=== PATIENT | male | born 1975 | race Two or more races ===

== ENCOUNTER 2018-04-13 12:02 | Inpatient (IN) | payer BC ==
[2018-04-13] MEDS ORDERED: SODIUM CHLORIDE 0.9% 500 ML 500 ML IV STA (12:20)
[2018-04-13 13:46] LABS: Basophils % (A) 0 %; Eosinophils # (A) 0.3 k/uL (0-0.7); Eosinophils % (A) 2 %; HCT 43.6 % (39.0-53.0); HGB 15.1 gm/dL (13.0-17.5); Lymphocytes # (A) 1.7 k/uL (1.0-4.8); Lymphocytes % (A) 13 %; MCH 31.3 pg (25.0-35.0); MCHC 34.7 g/dL (31.0-37.0); MCV 90.3 fL (80.0-100.0); Mean Platelet Volume 6.2; Monocytes # (A) 0.9 k/uL (0-1.0); Monocytes % (A) 7 %; Neutrophils % (A) 77 %; Platelet Count 343 k/uL (150-450); RBC 4.83 m/uL (4.30-5.90); RDW 13.4 % (11.5-15.5); WBC 12.9 k/uL (3.8-10.6)
[2018-04-13 13:47] LABS: Appearance,Urine Clear (Clear); Bacteria,Urine Rare /hpf; Bilirubin,Urine Negative (Negative); Blood,Urine Small (Negative); Color,Urine Yellow; Glucose,Urine (UA) Negative (Negative); Ketones,Urine Trace (Negative); Leukocyte Esterase,Urine Negative (Negative); Mucus,Urine Moderate /hpf; Nitrite,Urine Negative (Negative); PH, Urine 5.5 (5.0-8.0); Protein,Urine Trace (Negative); RBC,Urine 1 /hpf (0-5); Squamous Epithelial Cell,Urine <1 /hpf (0-4); Urobilinogen,Urine <2.0 mg/dL (<2.0); WBC,Urine <1 /hpf (0-5)
[2018-04-13 13:52] LABS: ALT 25 U/L (21-72); AST 22 U/L (17-59); Albumin 4.5 g/dL (3.5-5.0); Alkaline Phosphatase 89 U/L (38-126); Amylase 63 U/L (30-110); Anion Gap 9 mmol/L; Blood Urea Nitrogen 11 mg/dL (9-20); Calcium 9.7 mg/dL (8.4-10.2); Carbon Dioxide 27 mmol/L (22-30); Chloride 104 mmol/L (98-107); Glucose 88 mg/dL (74-99); INR 0.9 (<1.2); Lipase 53 U/L (23-300); Partial Thromboplastin Time 26.6 sec (22.0-30.0); Potassium 4.4 mmol/L (3.5-5.1); Prothrombin Time 9.8 sec (9.0-12.0); Sodium 140 mmol/L (137-145); Total Protein 7.2 g/dL (6.3-8.2)
[2018-04-13] MEDS ORDERED: PIPERACILLIN-TAZOBACTAM 3.375 GM in SODIUM CHLORIDE 0.9% 100 ML IVPB STA (14:55)
--- NOTE | 2018-04-13 15:06 | CT ---
EXAMINATION TYPE: CT abdomen pelvis w con DATE OF EXAM: 04/13/2018 COMPARISON: None HISTORY: Right sided abdominal pain CT DLP: 464.3 mGycm Automated exposure control for dose reduction was used. TECHNIQUE: Helical acquisition of images was performed from the lung bases through the pelvis. CONTRAST: Performed without Oral Contrast and with IV Contrast, patient injected with 100 mL of Isovue 300. FINDINGS: Lung bases are clear. There is no pleural effusion. Heart size is normal. Liver spleen pancreas gallbladder appear normal. Bile ducts are not dilated. There is no adrenal mass . The kidneys show satisfactory contrast opacification. There is no hydronephrosis. There is no retro peritoneal adenopathy. There is mild free fluid in the pelvis. Bladder distends smoothly. There is no inguinal hernia. There is extensive inflammatory changes in the right lower quadrant. There is thickened appendix that measures up to 8 mm. There is air in the distal appendix. There is some fluid around the cecum. There is no evidence of free air. There is no mesenteric edema. The lumbar vertebra have normal spacing and alignment. Bony pelvis is intact. IMPRESSION: INFLAMMATORY CHANGES IN THE RIGHT LOWER QUADRANT AROUND THE CECUM AND PROXIMAL APPENDIX. THERE IS MELISSA E FLUID IN THE PELVIS. THIS MOST LIKELY RELATES TO APPENDICITIS AND PROBABLY RUPTURE ACCOUNTING FOR T HE FREE FLUID IN THE PELVIS. FOCAL COLITIS IS POSSIBLE AND FOLLOW UP TO BE LESS LIKELY.
[2018-04-13] MEDS ORDERED: NALOXONE 0.4 MG/ML 1 ML VIAL IV PRN ×2 (15:21→17:46)
--- NOTE | 2018-04-13 15:29 | ED ---
General Adult HPI - General Chief complaint: Abdominal Pain Stated complaint: Abd pain Time Seen by Provider: 04/13/18 12:09 Source: patient, RN notes reviewed, old records reviewed Mode of arrival: ambulatory Limitations: no limitations - History of Present Illness Initial comments: 42-year-old presenting with right lower quadrant abdominal pain. Pain present for the past 24-48 hours. Patient has tenderness on exam, concern for appendicitis. CT is obtained which shows concern for acute appendicitis with adjacent inflammation and fat stranding. Patient case is discussed with on- call surgery Dr. Olson will admit. Diagnosis: Acute appendicitis. - Related Data Home Medications Medication Instructions Recorded Confirmed Acetaminophen Tab [Tylenol Tab] 650 mg PO Q4H PRN 04/13/18 04/13/18 Allergies Allergy/AdvReac Type Severity Reaction Status Date / Time No Known Allergies Allergy Verified 04/13/18 12:26 Review of Systems ROS Statement: Those systems with pertinent positive or pertinent negative responses have been documented in the HPI. ROS Other: All systems not noted in ROS Statement are negative. Past Medical History Past Medical History: No Reported History History of Any Multi-Drug Resistant Organisms: None Reported Additional Past Surgical History / Comment(s): eye surgery Past Psychological History: No Psychological Hx Reported Smoking Status: Current every day smoker Past Alcohol Use History: Occasional Past Drug Use History: None Reported General Exam Limitations: no limitations Course Vital Signs 04/13/18 04/13/18 12:04 15:08 Temperature 97.6 F 98.7 F Pulse Rate 95 83 Respiratory 18 14 Rate Blood Pressure 151/82 133/88 O2 Sat by Pulse 100 98 Oximetry Medical Decision Making - Lab Data Result diagrams: 04/13/18 12:30 04/13/18 12:30 Lab Results 04/13/18 04/13/18 04/13/18 Range/Units 12:30 12:30 12:30 WBC 12.9 H (3.8-10.6) k/uL RBC 4.83 (4.30-5.90) m/uL Hgb 15.1 (13.0-17.5) gm/dL Hct 43.6 (39.0-53.0) % MCV 90.3 (80.0-100.0) fL MCH 31.3 (25.0-35.0) pg MCHC 34.7 (31.0-37.0) g/dL RDW 13.4 (11.5-15.5) % Plt Count 343 (150-450) k/uL Neutrophils % 77 % Lymphocytes % 13 % Monocytes % 7 % Eosinophils % 2 % Basophils % 0 % Neutrophils # 10.0 H (1.3-7.7) k/uL Lymphocytes # 1.7 (1.0-4.8) k/uL Monocytes # 0.9 (0-1.0) k/uL Eosinophils # 0.3 (0-0.7) k/uL Basophils # 0.0 (0-0.2) k/uL PT (9.0-12.0) sec INR (<1.2) APTT (22.0-30.0) sec Sodium 140 (137-145) mmol/L Potassium 4.4 (3.5-5.1) mmol/L Chloride 104 (98-107) mmol/L Carbon Dioxide 27 (22-30) mmol/L Anion Gap 9 mmol/L BUN 11 (9-20) mg/dL Creatinine 0.87 (0.66-1.25) mg/dL Est GFR (CKD-EPI)AfAm >90 (>60 ml/min/1.73 sqM) Est GFR (CKD-EPI)NonAf >90 (>60 ml/min/1.73 sqM) Glucose 88 (74-99) mg/dL Plasma Lactic Acid Randall 0.9 (0.7-2.0) mmol/L Calcium 9.7 (8.4-10.2) mg/dL Total Bilirubin 1.0 (0.2-1.3) mg/dL AST 22 (17-59) U/L ALT 25 (21-72) U/L Alkaline Phosphatase 89 (38-126) U/L Total Protein 7.2 (6.3-8.2) g/dL Albumin 4.5 (3.5-5.0) g/dL Amylase 63 (30-110) U/L Lipase 53 (23-300) U/L Urine Color Urine Appearance (Clear) Urine pH (5.0-8.0) Ur Specific [place] (1.001-1.035) Urine Protein (Negative) Urine Glucose (UA) (Negative) Urine Ketones (Negative) Urine Blood (Negative) Urine Nitrite (Negative) Urine Bilirubin (Negative) Urine Urobilinogen (<2.0) mg/dL Ur Leukocyte Esterase (Negative) Urine RBC (0-5) /hpf Urine WBC (0-5) /hpf Ur Squamous Epith Cells (0-4) /hpf Urine Bacteria (None) /hpf Urine Mucus (None) /hpf 04/13/18 04/13/18 Range/Units 12:30 12:30 WBC (3.8-10.6) k/uL RBC (4.30-5.90) m/uL Hgb (13.0-17.5) gm/dL Hct (39.0-53.0) % MCV (80.0-100.0) fL MCH (25.0-35.0) pg MCHC (31.0-37.0) g/dL RDW (11.5-15.5) % Plt Count (150-450) k/uL Neutrophils % % Lymphocytes % % Monocytes % % Eosinophils % % Basophils % % Neutrophils # (1.3-7.7) k/uL Lymphocytes # (1.0-4.8) k/uL Monocytes # (0-1.0) k/uL Eosinophils # (0-0.7) k/uL Basophils # (0-0.2) k/uL PT 9.8 (9.0-12.0) sec INR 0.9 (<1.2) APTT 26.6 (22.0-30.0) sec Sodium (137-145) mmol/L Potassium (3.5-5.1) mmol/L Chloride (98-107) mmol/L Carbon Dioxide (22-30) mmol/L Anion Gap mmol/L BUN (9-20) mg/dL Creatinine (0.66-1.25) mg/dL Est GFR (CKD-EPI)AfAm (>60 ml/min/1.73 sqM) Est GFR (CKD-EPI)NonAf (>60 ml/min/1.73 sqM) Glucose (74-99) mg/dL Plasma Lactic Acid Randall (0.7-2.0) mmol/L Calcium (8.4-10.2) mg/dL Total Bilirubin (0.2-1.3) mg/dL AST (17-59) U/L ALT (21-72) U/L Alkaline Phosphatase (38-126) U/L Total Protein (6.3-8.2) g/dL Albumin (3.5-5.0) g/dL Amylase (30-110) U/L Lipase (23-300) U/L Urine Color Yellow Urine Appearance Clear (Clear) Urine pH 5.5 (5.0-8.0) Ur Specific [place] 1.020 (1.001-1.035) Urine Protein Trace H (Negative) Urine Glucose (UA) Negative (Negative) Urine Ketones Trace H (Negative) Urine Blood Small H (Negative) Urine Nitrite Negative (Negative) Urine Bilirubin Negative (Negative) Urine Urobilinogen <2.0 (<2.0) mg/dL Ur Leukocyte Esterase Negative (Negative) Urine RBC 1 (0-5) /hpf Urine WBC <1 (0-5) /hpf Ur Squamous Epith Cells <1 (0-4) /hpf Urine Bacteria Rare H (None) /hpf Urine Mucus Moderate H (None) /hpf Disposition Clinical Impression: Acute appendicitis Disposition: ADMITTED IP TO THIS HOSP Condition: Stable Is patient prescribed a controlled substance at d/c from ED?: No Referrals: Jordon Milligan MD [Primary Care Provider] - 1-2 days Time of Disposition: 15:27
[2018-04-13] MEDS ORDERED: MORPHINE SULFATE 4 MG/ML SYRINGE IVP STA (15:31)
[2018-04-13] MEDS: SODIUM CHLORIDE 0.9% 1,000 ML IV SCH (15:39)
[2018-04-13] MEDS ORDERED: LIDOCAINE 1% INJ 10MG/ML (20 ML MDV) ONE (16:08)
[2018-04-13] MEDS ORDERED: fentaNYL (PF) 50 MCG/ML 2 ML AMP ONE (16:08)
[2018-04-13] MEDS ORDERED: HEPARIN SODIUM,PORCINE 5,000 UNIT/ML 1 ML VIAL ONE (16:08)
[2018-04-13] MEDS ORDERED: NEOSTIGMINE 1 MG/ML 10 ML VIAL ONE (16:08)
[2018-04-13] MEDS ORDERED: GLYCOPYRROLATE 0.2 MG/ML 2 ML VIAL ONE (16:08)
[2018-04-13] MEDS ORDERED: PROPOFOL 10 MG/ML 20 ML VIAL IV ONE (16:08)
[2018-04-13] MEDS ORDERED: ROCURONIUM BROMIDE 10 MG/ML 10 ML VIAL IV ONE (16:08)
[2018-04-13] MEDS ORDERED: MIDAZOLAM 2 MG/2 ML VIAL ONE (16:08)
[2018-04-13] MEDS ORDERED: SUCCINYLCHOLINE CHLORIDE 100 MG/5 ML SYR IV ONE (16:08)
--- NOTE | 2018-04-13 16:09 | P.GSHP ---
History of Present Illness H&P Date: 04/13/18 This is a 42 year old male who presents with abdominal pain in his RLQ that began yesterday. he states he's had no fevers. He's never had pain like this before.The pain is progressively been getting worse over the last 24 hours and he came to the emergency room. He's never had surgery before. His only medical problem is a nystagmus. He had a surgery on his eyes regarding this. Computed tomography scan revealed acute appendicitis with concern for possible perforation. Past Medical History Past Medical History: No Reported History History of Any Multi-Drug Resistant Organisms: None Reported Additional Past Surgical History / Comment(s): eye surgery Past Psychological History: No Psychological Hx Reported Smoking Status: Current every day smoker Past Alcohol Use History: Occasional Past Drug Use History: None Reported Medications and Allergies Home Medications Medication Instructions Recorded Confirmed Type Acetaminophen Tab [Tylenol Tab] 650 mg PO Q4H PRN 04/13/18 04/13/18 History Allergies Allergy/AdvReac Type Severity Reaction Status Date / Time No Known Allergies Allergy Verified 04/13/18 12:26 Surgical - Exam Osteopathic Statement: *. No significant issues noted on an osteopathic structural exam other than those noted in the History and Physical/Consult. Vital Signs Temp Pulse Resp BP Pulse Ox 97.6 F 95 18 151/82 100 04/13/18 12:04 04/13/18 12:04 04/13/18 12:04 04/13/18 12:04 04/13/18 12:04 - General well developed, well nourished, no distress - Neck trachea midline - Respiratory normal expansion, normal respiratory effort - Cardiovascular Rhythm: regular - Abdomen S/ND/TTP RLQ no RRG - Integumentary no rash - Neurologic normal coordination, normal sensation - Psychiatric oriented to time, oriented to person, oriented to place Results - Labs 04/13/18 12:30 04/13/18 12:30 Abnormal Lab Results - Last 24 Hours (Table) 04/13/18 04/13/18 Range/Units 12:30 12:30 WBC 12.9 H (3.8-10.6) k/uL Neutrophils # 10.0 H (1.3-7.7) k/uL Urine Protein Trace H (Negative) Urine Ketones Trace H (Negative) Urine Blood Small H (Negative) Urine Bacteria Rare H (None) /hpf Urine Mucus Moderate H (None) /hpf Diabetes panel 04/13/18 Range/Units 12:30 Sodium 140 (137-145) mmol/L Potassium 4.4 (3.5-5.1) mmol/L Chloride 104 (98-107) mmol/L Carbon Dioxide 27 (22-30) mmol/L BUN 11 (9-20) mg/dL Creatinine 0.87 (0.66-1.25) mg/dL Glucose 88 (74-99) mg/dL Calcium 9.7 (8.4-10.2) mg/dL AST 22 (17-59) U/L ALT 25 (21-72) U/L Alkaline Phosphatase 89 (38-126) U/L Total Protein 7.2 (6.3-8.2) g/dL Albumin 4.5 (3.5-5.0) g/dL Calcium panel 04/13/18 Range/Units 12:30 Calcium 9.7 (8.4-10.2) mg/dL Albumin 4.5 (3.5-5.0) g/dL Pituitary panel 04/13/18 Range/Units 12:30 Sodium 140 (137-145) mmol/L Potassium 4.4 (3.5-5.1) mmol/L Chloride 104 (98-107) mmol/L Carbon Dioxide 27 (22-30) mmol/L BUN 11 (9-20) mg/dL Creatinine 0.87 (0.66-1.25) mg/dL Glucose 88 (74-99) mg/dL Calcium 9.7 (8.4-10.2) mg/dL Adrenal panel 04/13/18 Range/Units 12:30 Sodium 140 (137-145) mmol/L Potassium 4.4 (3.5-5.1) mmol/L Chloride 104 (98-107) mmol/L Carbon Dioxide 27 (22-30) mmol/L BUN 11 (9-20) mg/dL Creatinine 0.87 (0.66-1.25) mg/dL Glucose 88 (74-99) mg/dL Calcium 9.7 (8.4-10.2) mg/dL Total Bilirubin 1.0 (0.2-1.3) mg/dL AST 22 (17-59) U/L ALT 25 (21-72) U/L Alkaline Phosphatase 89 (38-126) U/L Total Protein 7.2 (6.3-8.2) g/dL Albumin 4.5 (3.5-5.0) g/dL Assessment and Plan Assessment: Acute appendicitis Plan: Patient has clinical and CT findings consistent with acute appendicitis with a possible perforation. There is no significant abscess or fluid collection seen on CT. I discussed these findings with the patient. I discussed laparoscopic appendectomy possible open possible bowel resection with the patient he stated he understood and agreed and consented the procedure. He'll be continued on nothing by mouth and given IV antibiotics.
[2018-04-13] MEDS ORDERED: SODIUM CHLORIDE 0.9% 1,000 ML IV ONE (16:12)
[2018-04-13] MEDS ORDERED: LIDOCAINE 1%-EPI 1:100,000 20 ML VIAL SQ ONE (16:28)
[2018-04-13] MEDS ORDERED: LACTATED RINGERS 1,000 ML IV ONE ×2 (17:29→18:31)
--- NOTE | 2018-04-13 18:29 | P.OP ---
Date of Procedure: 04/13/18 Preoperative Diagnosis: Acute appendicitis Postoperative Diagnosis: Inflammatory Cecal mass Procedure(s) Performed: Laparoscopic appendectomy converted to open right hemicolectomy Anesthesia: ASIYA Surgeon: Misael Olson Estimated Blood Loss (ml): 50 Pathology: other (Right colon) Condition: stable Disposition: floor Description of Procedure: Patient was brought into the operative suite remained in the supine position when general endotracheal anesthesia per Department of anesthesia prepped and draped in the usual sterile fashion timeout was performed correct patient correct procedure correct site was verified. A vertical 2 cm incision was made just above the umbilicus carried down the fascia which was excised under direct visualization. The abdomen was entered and insufflated. A 5 mm port was placed suprapubic and a 5 mm port was placed in the left lower quadrant. The appendix was identified and there was an inflammatory mass noted at the base of the cecum. This was and seemed to be not involving the appendix. At this time decision was made to open and perform right hemicolectomy. The suprapubic and super umbilical incision were connected and the fascia was incised. The colon was taken down along the white line in the hepatic flexure was taken down. An area of the transverse colon was selected and stapled across using CHICO blue load stapler. An area of terminal ileum presently 8 cm from the ileocecal valve was identified and a blue load CHICO stapler was used to staple across the small bowel. LigaSure device was used to take the mesentery at the base and the specimen was sent to pathology. The small bowel was aligned with the transverse colon and enterotomy and colotomy were made along the staple line and a [id number] functional end-to-end anastomosis was created with a blue load CHICO stapler. The common enterotomy was closed with that 55 mm linear stapler. This staple line was oversewn with 3-0 Vicryls. The abdomen was copiously irrigated. Sponge and needle counts were correct. The abdomen was then closed with 1 looped PDS sutures meeting in the middle. Skin was closed with skin scarlett. Patient tolerated procedure well no apparent complications
[2018-04-13] MEDS ORDERED: ONDANSETRON 4 MG/2 ML VIAL IVP ONE (18:48)
[2018-04-13] MEDS: HYDROmorphone 1 MG/ML 1 ML SYRINGE IVP ONE ×2 (19:15→19:20)
[2018-04-13] MEDS: ROPIVACAINE 250 MG, HYDROMORPHONE (PF) 5 MG in SODIUM CHLORIDE 0.9% 200 ML EPIDURAL PRN (19:46)
[2018-04-14] MEDS: PIPERACILLIN-TAZOBACTAM 3.375 GM in SODIUM CHLORIDE 0.9% 100 ML IVPB SCH ×3 (00:08→15:50)
[2018-04-14] MEDS: SODIUM CHLORIDE 0.9% 1,000 ML IV SCH ×2 (01:44→08:15)
[2018-04-14] MEDS: ONDANSETRON 4 MG/2 ML VIAL IVP PRN ×2 (08:15→15:59)
[2018-04-14] MEDS: NICOTINE 21MG/24HR PATCH TRANSDERM SCH (15:50)
--- NOTE | 2018-04-14 16:26 | P.PN ---
Subjective Progress Note Date: 04/14/18 Patient is doing well today, pain is well controlled. No complaints. No flatus or BM. No NV. Objective - Vital Signs Vital signs: Vital Signs Temp 98.2 F 04/14/18 14:58 Pulse 104 H 04/14/18 14:58 Resp 18 04/14/18 14:58 BP 119/72 04/14/18 14:58 Pulse Ox 94 L 04/14/18 14:58 Intake & Output 04/13/18 04/14/18 04/14/18 18:59 06:59 18:59 Intake Total 2000 200 100 Output Total 300 500 700 Balance 1700 -300 -600 Weight 54.431 kg Intake: IV 2000 Intake, IV Titration 200 100 Amount Piperacillin-Tazobactam 3 100 .375 gm In Sodium Chloride 0.9% 100 ml @ 25 mls/hr IVPB Q8HR [facility] Rx# :[id number] Sodium Chloride 0.9% 1, 200 000 ml @ 100 mls/hr IV . Q10H [facility] Rx#:[id number] Output: Urine 250 500 700 Estimated Blood Loss 50 Other: Voiding Method Indwelling Catheter Indwelling Catheter - Constitutional General appearance: Present: cooperative - Respiratory Details: nonlabored - Cardiovascular Rhythm: regular - Gastrointestinal Gastrointestinal Comment(s): S/ND/expected TTP - Psychiatric Psychiatric: Present: A&O x's 3 - Labs CBC & Chem 7: 04/13/18 12:30 04/13/18 12:30 Assessment and Plan Assessment: POD#1 lap converted to open right hemicolectomy for cecal mass Plan: Doing well today. Cont NPO, epidural per anesthesia. OOBTC. IS. SCDs
[2018-04-14] MEDS: LACTATED RINGERS 1,000 ML IV SCH (17:53)
[2018-04-14] MEDS: FAMOTIDINE 20 MG/2 ML VIAL IV SCH (17:53)
[2018-04-14] MEDS: ROPIVACAINE 250 MG, HYDROMORPHONE (PF) 5 MG in SODIUM CHLORIDE 0.9% 200 ML EPIDURAL PRN (22:00)
[2018-04-15] MEDS: LACTATED RINGERS 1,000 ML IV SCH ×3 (03:00→23:42)
[2018-04-15] MEDS ORDERED: diphenhydrAMINE 50 MG/ML 1 ML VIAL IVP PRN (04:39)
--- NOTE | 2018-04-15 07:10 | P.PN ---
Progress Note - Text Progress Note Date: 04/15/18 Patient's postop date 2 from an exploratory laparotomy. This catheter day 3. Catheters running at 8 miles per hour. Patient is able to stand up. No lower extremity numbness or tingling. Patient still has a Alvarado catheter in place per the surgery team. The site is clean and dry. We will continue the epidural catheter settings for 1 more day to be discontinued on April 16.
[2018-04-15 08:18] LABS: Anion Gap 9 mmol/L; Blood Urea Nitrogen 6 mg/dL (9-20); Calcium 8.5 mg/dL (8.4-10.2); Carbon Dioxide 24 mmol/L (22-30); Chloride 105 mmol/L (98-107); Glucose 79 mg/dL (74-99); Potassium 4.1 mmol/L (3.5-5.1); Sodium 138 mmol/L (137-145)
[2018-04-15 08:19] LABS: Basophils % (A) 0 %; Eosinophils # (A) 0.1 k/uL (0-0.7); Eosinophils % (A) 1 %; HCT 36.4 % (39.0-53.0); Lymphocytes # (A) 1.2 k/uL (1.0-4.8); Lymphocytes % (A) 11 %; MCH 31.2 pg (25.0-35.0); MCHC 32.4 g/dL (31.0-37.0); Mean Platelet Volume 6.4; Monocytes # (A) 0.8 k/uL (0-1.0); Monocytes % (A) 7 %; Neutrophils # (A) 9.1 k/uL (1.3-7.7); Neutrophils % (A) 80 %; Platelet Count 283 k/uL (150-450); RBC 3.78 m/uL (4.30-5.90); RDW 13.3 % (11.5-15.5); WBC 11.4 k/uL (3.8-10.6)
[2018-04-15 08:24] LABS: HGB 11.8 gm/dL (13.0-17.5); MCV 96.1 fL (80.0-100.0)
[2018-04-15] MEDS: NICOTINE 21MG/24HR PATCH TRANSDERM SCH (09:13)
[2018-04-15] MEDS: FAMOTIDINE 20 MG/2 ML VIAL IV SCH (09:19)
[2018-04-15] MEDS ORDERED: HYDROmorphone 1 MG/ML 1 ML SYRINGE IVP PRN (09:59)
--- NOTE | 2018-04-15 14:16 | P.PN ---
Subjective Progress Note Date: 04/15/18 Patient is doing well today, pain is well controlled. No NV. He did pass some flatus. No fever or chills. His epidural was accidentally pulled while moving. He states his pain is tolerable Objective - Vital Signs Vital signs: Vital Signs Temp 98.8 F 04/15/18 07:36 Pulse 99 04/15/18 07:36 Resp 14 04/15/18 07:36 BP 136/82 04/15/18 07:36 Pulse Ox 96 04/15/18 07:36 Intake & Output 04/14/18 04/15/18 04/15/18 18:59 06:59 18:59 Intake Total 100 300 Output Total 700 1050 Balance -600 -750 Intake: Intake, IV Titration 100 300 Amount Lactated Ringers 1,000 ml 200 @ 100 mls/hr IV .Q10H [facility] Rx#:[id number] Piperacillin-Tazobactam 3 100 100 .375 gm In Sodium Chloride 0.9% 100 ml @ 25 mls/hr IVPB Q8HR [facility] Rx# :[id number] Output: Urine 700 1050 Other: Voiding Method Indwelling Catheter Indwelling Catheter Indwelling Catheter # Voids 1 - Constitutional General appearance: Present: cooperative - Respiratory Details: Nonlabored - Cardiovascular Rhythm: regular - Gastrointestinal Gastrointestinal Comment(s): S/ND/ minimal TTP expected. Dressing CDI - Psychiatric Psychiatric: Present: A&O x's 3 - Labs CBC & Chem 7: 04/15/18 06:47 04/15/18 06:47 Labs: Abnormal Lab Results - Last 24 Hours (Table) 04/15/18 04/15/18 Range/Units 06:47 06:47 WBC 11.4 H (3.8-10.6) k/uL RBC 3.78 L (4.30-5.90) m/uL Hgb 11.8 L D (13.0-17.5) gm/dL Hct 36.4 L (39.0-53.0) % Neutrophils # 9.1 H (1.3-7.7) k/uL BUN 6 L (9-20) mg/dL Microbiology - Last 24 Hours (Table) 04/13/18 15:20 Blood Culture - Preliminary Blood No Growth after 24 hours Assessment and Plan Assessment: POD#2 lap converted to open right hemicolectomy for cecal mass Plan: Patient is progressing well. He may start on clears. DC martinez. Ambulate in halls. IS. Pain control with toradol and norco as needed
[2018-04-15] MEDS: KETOROLAC 30 MG/ML 1 ML VIAL IVP SCH ×2 (15:51→23:22)
[2018-04-16] MEDS: KETOROLAC 30 MG/ML 1 ML VIAL IVP SCH ×4 (05:24→22:45)
[2018-04-16 07:45] LABS: Basophils % (A) 1 %; Eosinophils # (A) 0.3 k/uL (0-0.7); Eosinophils % (A) 3 %; HCT 38.2 % (39.0-53.0); HGB 12.5 gm/dL (13.0-17.5); Lymphocytes # (A) 1.8 k/uL (1.0-4.8); Lymphocytes % (A) 21 %; MCH 30.8 pg (25.0-35.0); MCHC 32.7 g/dL (31.0-37.0); MCV 94.2 fL (80.0-100.0); Mean Platelet Volume 6.5; Monocytes # (A) 0.7 k/uL (0-1.0); Monocytes % (A) 8 %; Neutrophils # (A) 5.7 k/uL (1.3-7.7); Neutrophils % (A) 66 %; Platelet Count 354 k/uL (150-450); RBC 4.05 m/uL (4.30-5.90); RDW 13.1 % (11.5-15.5); WBC 8.5 k/uL (3.8-10.6)
[2018-04-16 07:56] LABS: Anion Gap 6 mmol/L; Blood Urea Nitrogen 7 mg/dL (9-20); Calcium 8.7 mg/dL (8.4-10.2); Carbon Dioxide 28 mmol/L (22-30); Chloride 107 mmol/L (98-107); Glucose 88 mg/dL (74-99); Sodium 141 mmol/L (137-145)
[2018-04-16] MEDS: NICOTINE 21MG/24HR PATCH TRANSDERM SCH (09:23)
[2018-04-16] MEDS: FAMOTIDINE 20 MG/2 ML VIAL IV SCH (09:23)
[2018-04-16] MEDS: LACTATED RINGERS 1,000 ML IV SCH ×2 (10:16→16:47)
--- NOTE | 2018-04-16 12:26 | P.PN ---
Subjective Progress Note Date: 04/16/18 Patient is doing well today, he had a BM overnight. Walking in halls. Minimal pain Objective - Vital Signs Vital signs: Vital Signs Temp 97.5 F L 04/16/18 07:00 Pulse 69 04/16/18 07:00 Resp 12 04/16/18 07:00 BP 155/84 04/16/18 07:00 Pulse Ox 97 04/16/18 09:33 Intake & Output 04/15/18 04/16/18 04/16/18 18:59 06:59 18:59 Intake Total 720 540 Output Total 100 Balance 620 540 Intake: Oral 720 540 Output: Urine 100 Other: Voiding Method Indwelling Catheter Toilet # Voids 2 - Constitutional General appearance: Present: cooperative - Respiratory Details: nonlabored - Cardiovascular Rhythm: regular - Gastrointestinal Gastrointestinal Comment(s): S/NT/ND incision CDI - Labs CBC & Chem 7: 04/16/18 06:36 04/16/18 06:36 Labs: Abnormal Lab Results - Last 24 Hours (Table) 04/16/18 04/16/18 Range/Units 06:36 06:36 RBC 4.05 L (4.30-5.90) m/uL Hgb 12.5 L (13.0-17.5) gm/dL Hct 38.2 L (39.0-53.0) % BUN 7 L (9-20) mg/dL Microbiology - Last 24 Hours (Table) 04/13/18 15:20 Blood Culture - Preliminary Blood No Growth after 48 hours Assessment and Plan Assessment: POD#3 lap converted to open right hemicolectomy for cecal mass Plan: Patient is progressing well. He may start on soft diet. Anticipated DC home when tolerating diet
--- NOTE | 2018-04-16 12:59 | P.PN ---
Progress Note - Text 04/14 161 42-year-old male status post right, hemicolectomy by Dr. dykes. Patient seen, epidural solution running at 8 mL an hour, VAS of 1, he does have some heaviness in his left leg, but I decided against changing the rate because I did not want the patient to have any pain.
[2018-04-16] MEDS ORDERED: diphenhydrAMINE 25 MG CAP PO PRN (15:05)
[2018-04-16] MEDS: HYDROcodone/APAP 5-325MG 1 EACH TAB PO PRN ×2 (16:46→22:48)
[2018-04-17 00:50] VITALS: RESP 16
[2018-04-17] MEDS: KETOROLAC 30 MG/ML 1 ML VIAL IVP SCH ×2 (03:14→11:47)
[2018-04-17] MEDS: LACTATED RINGERS 1,000 ML IV SCH (03:15)
[2018-04-17] MEDS: HYDROcodone/APAP 5-325MG 1 EACH TAB PO PRN ×2 (05:46→11:50)
[2018-04-17] MEDS ORDERED: FAMOTIDINE 20 MG TAB PO SCH (09:00)
[2018-04-17] MEDS: NICOTINE 21MG/24HR PATCH TRANSDERM SCH (10:18)
[2018-04-17 10:36] LABS: Basophils % (A) 0 %; Eosinophils # (A) 0.4 k/uL (0-0.7); Eosinophils % (A) 5 %; HCT 37.8 % (39.0-53.0); HGB 12.3 gm/dL (13.0-17.5); Lymphocytes # (A) 1.4 k/uL (1.0-4.8); Lymphocytes % (A) 18 %; MCH 30.3 pg (25.0-35.0); MCHC 32.5 g/dL (31.0-37.0); MCV 93.1 fL (80.0-100.0); Mean Platelet Volume 7.1; Monocytes # (A) 0.6 k/uL (0-1.0); Monocytes % (A) 8 %; Neutrophils # (A) 5.3 k/uL (1.3-7.7); Neutrophils % (A) 68 %; Platelet Count 413 k/uL (150-450); RBC 4.06 m/uL (4.30-5.90); RDW 13.3 % (11.5-15.5); WBC 7.8 k/uL (3.8-10.6)
[2018-04-17 11:12] LABS: Anion Gap 7 mmol/L; Blood Urea Nitrogen 9 mg/dL (9-20); Calcium 8.6 mg/dL (8.4-10.2); Carbon Dioxide 29 mmol/L (22-30); Chloride 102 mmol/L (98-107); Glucose 129 mg/dL (74-99); Potassium 3.9 mmol/L (3.5-5.1); Sodium 138 mmol/L (137-145)
[2018-04-17 14:36] VITALS: BP 117/79; PULSE 79; TEMP 98.4
--- NOTE | 2018-04-17 16:21 | P.DS ---
Providers Date of admission: 04/14/18 08:59 Attending physician: Misael Olson DO Primary care physician: Jordon Milligan Hospital Course: Patient was admitted with what appeared to be acute appendicitis he was taken to the operating room for laparoscopic appendectomy possible open during the procedure was found to have an inflammatory mass at the cecum procedure was converted open and right hemicolectomy was performed with ileocolic anastomosis. Postoperatively the patient did very well he began tolerating a diet and having bowel movements and was discharged home in stable condition on 04/17/2018 with instructions to follow-up in my clinic. Patient Condition at Discharge: Stable Plan - Discharge Summary New Discharge Prescriptions: New Docusate [Colace] 100 mg PO DAILY #10 capsule HYDROcodone/APAP 5-325MG [Chandler 5-325] 1 tab PO Q6HR PRN 3 Days #12 tab PRN Reason: Pain No Action Acetaminophen Tab [Tylenol Tab] 650 mg PO Q4H PRN PRN Reason: Pain Discharge Medication List Acetaminophen Tab [Tylenol Tab] 650 mg PO Q4H PRN 04/13/18 [History] Docusate [Colace] 100 mg PO DAILY #10 capsule 04/17/18 [Rx] HYDROcodone/APAP 5-325MG [Chandler 5-325] 1 tab PO Q6HR PRN 3 Days #12 tab [Rx] Follow up Appointment(s)/Referral(s): Misael Olson DO [Doctor of Osteopathic Medicine] - 04/28/18 9:30 am Jordon Milligan MD [Primary Care Provider] - 04/18/18 11:30 am (With [facility]) Patient Instructions/Handouts: Colectomy (DC), Open Appendectomy (DC) Activity/Diet/Wound Care/Special Instructions: As tolerated, no liting over 10 lbs for 3 to 4 weeks Discharge Disposition: HOME SELF-CARE
--- NOTE | 2018-04-18 15:09 | CDI ---
Documentation Clarification Form Date: 04/18/2018 2:59:38 PM From: RAÚL Rodriguez; Ana Little Punch Molder Phone: If you have a question about this query, please contact Ana Little Punch Molder at [phone] between 8am and 5pm. Admit Date: 04/14/2018 8:59:00 AM Patient Name: Chace Dobson Visit Number: [id number] Discharge Date: 04/17/2018 5:00:00 PM ATTENTION: The Clinical Documentation Specialists (CDI) and [facility] Coding Staff appreciate your assistance in clarifying documentation. Please respond to the clarification below the line at the bottom and electronically sign. The CDI & [facility] Coding staff will review the response and follow-up if needed. Please note: Queries are made part of the Legal Health Record. If you have any questions, please contact the author of this message via ITS. Dr. Misael Olson The final diagnosis of the pathology report related to colon resection performed states ileocecal valve ulceration with submucosal abscess, transmural inflammation, fat necrosis, hemorrhage and acute serositis. The appendix appears histologically unremarkable. Documentation states: Cecal mass. Patient history/risk factors: No prior history other than nystagmus. Clinical Indicators: Right lower quadrant pain. Treatment: Right hemicolectomy. In your professional opinion, do you agree with the pathology report specifying cecal mass as ulceration with abscess, transmural inflammation, fat necrosis, hemorrhage and acute serositis? Yes X No Other (please specify) Unable to determine MTDD
== END 2018-04-17 17:00 | disposition home or self-care (01) | DRG 329 ==
LOC: EC 12:02 → 4SSUR 15:25 → OBSVTOIN 04-14 08:59
PROVIDERS: ADMIT Student in an Organized Health Care Education/Training Program; ATTEND Student in an Organized Health Care Education/Training Program
PROC: 0DTF0ZZ Resection of Right Large Intestine, Open Approach (ICD-10-PCS; principal; 2018-04-13 16:00)
PROC: 0DTJ0ZZ Resection of Appendix, Open Approach (ICD-10-PCS; principal; 2018-04-13 16:00)
DX: K63.3 Ulcer of intestine (principal); K65.8 Other peritonitis; K63.0 Abscess of intestine; F17.200 Nicotine dependence, unspecified, uncomplicated; H55.00 Unspecified nystagmus; Z53.31 Laparoscopic surgical procedure converted to open procedure
CPT/HCPCS: 36415; 74177; 80048; 80053; 81001; 82150; 83605; 83690; 85025; 85610; 85730; 87040; 88307; 94760; 96365; 96375; 99285

== ENCOUNTER 2018-05-03 11:53 | Emergency (ER) | payer BC ==
[2018-05-03] MEDS ORDERED: SODIUM CHLORIDE 0.9% 1,000 ML IV SCH (12:15)
[2018-05-03] MEDS ORDERED: PIPERACILLIN-TAZOBACTAM 3.375 GM in SODIUM CHLORIDE 0.9% 100 ML IVPB STA (12:36)
[2018-05-03 13:01] VITALS: TEMP 97.9
[2018-05-03 13:13] LABS: Basophils # (A) 0.1 k/uL (0-0.2); Basophils % (A) 1 %; Eosinophils # (A) 0.4 k/uL (0-0.7); Eosinophils % (A) 3 %; HCT 44.9 % (39.0-53.0); HGB 14.6 gm/dL (13.0-17.5); Lymphocytes # (A) 1.8 k/uL (1.0-4.8); Lymphocytes % (A) 12 %; MCH 30.4 pg (25.0-35.0); MCHC 32.4 g/dL (31.0-37.0); MCV 93.8 fL (80.0-100.0); Mean Platelet Volume 6.5; Monocytes # (A) 0.6 k/uL (0-1.0); Monocytes % (A) 4 %; Neutrophils # (A) 11.9 k/uL (1.3-7.7); Neutrophils % (A) 80 %; Platelet Count 729 k/uL (150-450); RBC 4.79 m/uL (4.30-5.90); RDW 13.8 % (11.5-15.5); WBC 14.9 k/uL (3.8-10.6)
[2018-05-03 13:19] LABS: Appearance,Urine Clear (Clear); Bilirubin,Urine Negative (Negative); Blood,Urine Small (Negative); Color,Urine Yellow; Glucose,Urine (UA) Negative (Negative); Hyaline Casts,Urine 4 /lpf (0-2); Ketones,Urine 2+ (Negative); Leukocyte Esterase,Urine Small (Negative); Mucus,Urine Moderate /hpf; Nitrite,Urine Negative (Negative); PH, Urine 5.5 (5.0-8.0); Protein,Urine Trace (Negative); RBC,Urine 1 /hpf (0-5); Specific Gravity,Urine 1.017 (1.001-1.035); Urobilinogen,Urine <2.0 mg/dL (<2.0); WBC,Urine 2 /hpf (0-5)
[2018-05-03 13:23] LABS: INR 0.9 (<1.2); Partial Thromboplastin Time 27.6 sec (22.0-30.0); Prothrombin Time 9.5 sec (9.0-12.0)
[2018-05-03 13:24] LABS: ALT 38 U/L (21-72); AST 24 U/L (17-59); Albumin 4.8 g/dL (3.5-5.0); Alkaline Phosphatase 143 U/L (38-126); Anion Gap 13 mmol/L; Blood Urea Nitrogen 11 mg/dL (9-20); Calcium 10.3 mg/dL (8.4-10.2); Carbon Dioxide 26 mmol/L (22-30); Chloride 102 mmol/L (98-107); Glucose 93 mg/dL (74-99); Potassium 4.7 mmol/L (3.5-5.1); Sodium 141 mmol/L (137-145); Total Bilirubin 0.7 mg/dL (0.2-1.3); Total Protein 8.3 g/dL (6.3-8.2)
--- NOTE | 2018-05-03 14:07 | P.GSHP ---
History of Present Illness H&P Date: 05/03/18 Chief Complaint: Pain and drainage from his incision The patient's a 42-year-old man who underwent open appendectomy. He was seen in the office last week in the scarlett were removed. He started noticing swelling at the incision and came in today. There is some drainage. He denies fevers, chills, nausea, vomiting. Eating well. The incision itself is tender otherwise he is doing well - Review of Systems All systems: negative Past Medical History Past Medical History: No Reported History Additional Past Medical History / Comment(s): bowel obstruction History of Any Multi-Drug Resistant Organisms: None Reported Past Surgical History: Appendectomy, Bowel Resection Additional Past Surgical History / Comment(s): eye surgery Past Psychological History: No Psychological Hx Reported Smoking Status: Current every day smoker Past Alcohol Use History: Occasional Past Drug Use History: None Reported - Past Family History Father Family Medical History: Hypertension Mother Family Medical History: No Reported History Medications and Allergies Home Medications Medication Instructions Recorded Confirmed Type Acetaminophen Tab [Tylenol Tab] 650 mg PO Q4H PRN 04/13/18 04/13/18 History Docusate [Colace] 100 mg PO DAILY #10 capsule 04/17/18 Rx HYDROcodone/APAP 5-325MG [Gilson 1 tab PO Q6HR PRN 3 Days #12 tab 04/17/18 Rx 5-325] Allergies Allergy/AdvReac Type Severity Reaction Status Date / Time No Known Allergies Allergy Verified 05/03/18 11:57 Surgical - Exam Osteopathic Statement: *. No significant issues noted on an osteopathic structural exam other than those noted in the History and Physical/Consult. Vital Signs Temp Pulse Resp BP Pulse Ox 97.3 F L 90 18 126/86 97 05/03/18 11:54 05/03/18 11:54 05/03/18 11:54 05/03/18 11:54 05/03/18 11:54 - General well developed, well nourished, no distress - Abdomen In the midportion of the incision, just inferior to the umbilicus there is a 5 mm skin opening with purulent drainage. There is some mild cellulitis. The area is thoroughly probed and it does track a little bit superiorly. Abdomen: soft, bowel sounds Results - Labs 05/03/18 12:55 05/03/18 12:55 Abnormal Lab Results - Last 24 Hours (Table) 05/03/18 05/03/18 05/03/18 Range/Units 12:55 12:55 12:55 WBC 14.9 H (3.8-10.6) k/uL Plt Count 729 H (150-450) k/uL Neutrophils # 11.9 H (1.3-7.7) k/uL Calcium 10.3 H (8.4-10.2) mg/dL Alkaline Phosphatase 143 H (38-126) U/L Total Protein 8.3 H (6.3-8.2) g/dL Urine Protein Trace H (Negative) Urine Ketones 2+ H (Negative) Urine Blood Small H (Negative) Ur Leukocyte Esterase Small H (Negative) Hyaline Casts 4 H (0-2) /lpf Urine Mucus Moderate H (None) /hpf Diabetes panel 05/03/18 Range/Units 12:55 Sodium 141 (137-145) mmol/L Potassium 4.7 (3.5-5.1) mmol/L Chloride 102 (98-107) mmol/L Carbon Dioxide 26 (22-30) mmol/L BUN 11 (9-20) mg/dL Creatinine 0.84 (0.66-1.25) mg/dL Glucose 93 (74-99) mg/dL Calcium 10.3 H (8.4-10.2) mg/dL AST 24 (17-59) U/L ALT 38 (21-72) U/L Alkaline Phosphatase 143 H (38-126) U/L Total Protein 8.3 H (6.3-8.2) g/dL Albumin 4.8 (3.5-5.0) g/dL Calcium panel 05/03/18 Range/Units 12:55 Calcium 10.3 H (8.4-10.2) mg/dL Albumin 4.8 (3.5-5.0) g/dL Pituitary panel 05/03/18 Range/Units 12:55 Sodium 141 (137-145) mmol/L Potassium 4.7 (3.5-5.1) mmol/L Chloride 102 (98-107) mmol/L Carbon Dioxide 26 (22-30) mmol/L BUN 11 (9-20) mg/dL Creatinine 0.84 (0.66-1.25) mg/dL Glucose 93 (74-99) mg/dL Calcium 10.3 H (8.4-10.2) mg/dL Adrenal panel 05/03/18 Range/Units 12:55 Sodium 141 (137-145) mmol/L Potassium 4.7 (3.5-5.1) mmol/L Chloride 102 (98-107) mmol/L Carbon Dioxide 26 (22-30) mmol/L BUN 11 (9-20) mg/dL Creatinine 0.84 (0.66-1.25) mg/dL Glucose 93 (74-99) mg/dL Calcium 10.3 H (8.4-10.2) mg/dL Total Bilirubin 0.7 (0.2-1.3) mg/dL AST 24 (17-59) U/L ALT 38 (21-72) U/L Alkaline Phosphatase 143 H (38-126) U/L Total Protein 8.3 H (6.3-8.2) g/dL Albumin 4.8 (3.5-5.0) g/dL Assessment and Plan (1) Wound infection after surgery Current Visit: Yes Status: Acute Code(s): T81.49XA - INFECTION FOLLOWING A PROCEDURE, OTHER SURGICAL SITE, INIT SNOMED Code(s): 44666023 (2) Leukocytosis Current Visit: Yes Status: Acute Code(s): D72.829 - ELEVATED WHITE BLOOD CELL COUNT, UNSPECIFIED SNOMED Code(s): 452791477 Plan: Due to the leukocytosis, we'll check a CT of the abdomen and pelvis me shows no fluid collection under the fascia. As long as the CT does not show any fluid collection under the fascia, he would be okay to be discharged home on oral antibiotics. 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 Follow-up with Dr. dykes in the office next week.
--- NOTE | 2018-05-03 14:09 | P.PCN ---
Date of Procedure: 05/03/18 Preoperative Diagnosis: Postoperative wound infection Postoperative Diagnosis: Postoperative wound infection Procedure(s) Performed: Incision and drainage Anesthesia: local Surgeon: Yaquelin Titus Pathology: none sent Condition: stable Indications for Procedure: Patient presented with pain and swelling along with some drainage at the incision Description of Procedure: The skin is prepped with Betadine. Local anesthetic is instilled into the skin. An 11 blade is used to incise the skin. The wound is about 2 cm deep. The fascia underlying feels intact. No evidence of tracking superiorly or inferiorly. The wound is irrigated and packed with 1/4 inch iodoform gauze. Dressing is applied.
--- NOTE | 2018-05-03 15:06 | CT ---
EXAMINATION TYPE: CT abdomen pelvis wo con DATE OF EXAM: 05/03/2018 HISTORY: Post op pain, infection CT DLP: 309.7 mGycm. Automated Exposure Control for Dose Reduction was Utilized. TECHNIQUE: CT scan of the abdomen and pelvis is performed without oral or IV contrast. COMPARISON: CT abdomen pelvis 04/13/2018 FINDINGS: Within the limitations of a non-contrast study, the following observations are made. LUNG BASES: No significant abnormality is appreciated. LIVER/GB: No significant abnormality is appreciated. PANCREAS: No significant abnormality is seen. SPLEEN: No significant abnormality is seen. ADRENALS: No significant abnormality is seen. KIDNEYS: No significant abnormality is seen. GENITAL ORGANS: No gross abnormality seen. LYMPH NODES: No greater than 1cm abdominal or pelvic lymph nodes are appreciated. OSSEOUS STRUCTURES: No significant abnormality is seen. BOWEL: Interval right hemicolectomy colectomy. There are inflammatory type changes in the right lower quadrant. No evidence of pneumoperitoneum or sizable fluid. Appendix is no longer visualized. OTHER: Midline vertically oriented infraumbilical incision is noted. IMPRESSION: Limited examination secondary to lack of intravenous contrast. There is interval partial right hemico lectomy and appendectomy. Some mild inflammatory changes are seen in the right lower quadrant which m ay simply relate to a postoperative state. There is some suggestion of thickening of the descending c olon wall however definitive assessment is limited secondary to lack of IV and oral contrast. No evid ence of perforation or sizable fluid collection.
--- NOTE | 2018-05-03 16:55 | ED ---
Recheck HPI - General Chief Complaint: Recheck/Abnormal Lab/Rx Stated Complaint: Post op issues Time Seen by Provider: 05/03/18 12:04 Source: patient Mode of arrival: ambulatory Limitations: no limitations - History of Present Illness Initial Comments: 42-year-old male presents for discomfort in his abdomen around his incision. Patient had an appendectomy and colectomy 20 days ago. Patient had his scarlett removed 5 days ago. Patient states over last few days he noticed pain redness and swelling around his incision. Patient noticed a little drainage today and went to his primary care physician. After his primary care physician solid pustular drainage they sent him here. Patient had any fever chills no trouble with bowel movements. Patient had a normal bowel movement yesterday. No dysuria no back pain. Since still eating well and drinking well. MD Complaint: wound re-check Returns Today for: wound recheck Associated Symptoms: none - Related Data Home Medications Medication Instructions Recorded Confirmed Acetaminophen Tab [Tylenol Tab] 650 mg PO Q4H PRN 04/13/18 04/13/18 Previous Rx's Medication Instructions Recorded Docusate [Colace] 100 mg PO DAILY #10 capsule 04/17/18 HYDROcodone/APAP 5-325MG [[place] 1 tab PO Q6HR PRN 3 Days #12 tab 04/17/18 5-325] Amoxicillin/Potassium Clav 1 each PO Q12HR #20 tab 05/03/18 [Augmentin 875-125 Tablet] Allergies Allergy/AdvReac Type Severity Reaction Status Date / Time No Known Allergies Allergy Verified 05/03/18 11:57 Review of Systems ROS Statement: Those systems with pertinent positive or pertinent negative responses have been documented in the HPI. ROS Other: All systems not noted in ROS Statement are negative. Constitutional: Denies: fever, chills Skin: Denies: rash Neurological: Denies: weakness, numbness, paresthesias Past Medical History Past Medical History: No Reported History Additional Past Medical History / Comment(s): bowel obstruction History of Any Multi-Drug Resistant Organisms: None Reported Past Surgical History: Appendectomy, Bowel Resection Additional Past Surgical History / Comment(s): eye surgery Past Psychological History: No Psychological Hx Reported Smoking Status: Current every day smoker Past Alcohol Use History: Occasional Past Drug Use History: None Reported - Past Family History Father Family Medical History: Hypertension Mother Family Medical History: No Reported History General Exam Limitations: no limitations General appearance: alert, in no apparent distress ENT exam: Present: normal exam, mucous membranes moist Neck exam: Present: normal inspection. Absent: tenderness, meningismus, lymphadenopathy Respiratory exam: Present: normal lung sounds bilaterally. Absent: respiratory distress, wheezes, rales, rhonchi, stridor Cardiovascular Exam: Present: regular rate, normal rhythm, normal heart sounds. Absent: systolic murmur, diastolic murmur, rubs, gallop, clicks GI/Abdominal exam: Present: soft, tenderness (Around incision site. Erythematous area raised swollen area with copious amounts of pustular discharge wound culture taken), normal bowel sounds. Absent: distended, guarding, rebound, rigid Course Vital Signs 05/03/18 05/03/18 05/03/18 11:54 13:00 13:30 Temperature 97.3 F L 97.9 F Pulse Rate 90 82 86 Respiratory 18 18 17 Rate Blood Pressure 126/86 141/92 141/92 O2 Sat by Pulse 97 100 99 Oximetry 05/03/18 05/03/18 14:00 15:30 Temperature Pulse Rate 86 81 Respiratory 16 16 Rate Blood Pressure 114/87 127/89 O2 Sat by Pulse 100 98 Oximetry Medical Decision Making - Medical Decision Making Discussed and evaluated by Dr. Bello we'll call surgery for evaluation. We ordered septic workup and we will await lab results. After evaluated by surgeon we'll order a CT abdomen and await results. If results do not show any large abscess we will send home on Augmentin after Zosyn is finished. Patient comfortably in the room not increasing pain no fevers. Patient have close follow-up with surgeon in the outpatient setting in 1-2 days. - Lab Data Result diagrams: 05/03/18 12:55 05/03/18 12:55 Lab Results 05/03/18 05/03/18 05/03/18 Range/Units 12:55 12:55 12:55 WBC 14.9 H (3.8-10.6) k/uL RBC 4.79 (4.30-5.90) m/uL Hgb 14.6 (13.0-17.5) gm/dL Hct 44.9 (39.0-53.0) % MCV 93.8 (80.0-100.0) fL MCH 30.4 (25.0-35.0) pg MCHC 32.4 (31.0-37.0) g/dL RDW 13.8 (11.5-15.5) % Plt Count 729 H (150-450) k/uL Neutrophils % 80 % Lymphocytes % 12 % Monocytes % 4 % Eosinophils % 3 % Basophils % 1 % Neutrophils # 11.9 H (1.3-7.7) k/uL Lymphocytes # 1.8 (1.0-4.8) k/uL Monocytes # 0.6 (0-1.0) k/uL Eosinophils # 0.4 (0-0.7) k/uL Basophils # 0.1 (0-0.2) k/uL PT (9.0-12.0) sec INR (<1.2) APTT (22.0-30.0) sec Sodium 141 (137-145) mmol/L Potassium 4.7 (3.5-5.1) mmol/L Chloride 102 (98-107) mmol/L Carbon Dioxide 26 (22-30) mmol/L Anion Gap 13 mmol/L BUN 11 (9-20) mg/dL Creatinine 0.84 (0.66-1.25) mg/dL Est GFR (CKD-EPI)AfAm >90 (>60 ml/min/1.73 sqM) Est GFR (CKD-EPI)NonAf >90 (>60 ml/min/1.73 sqM) Glucose 93 (74-99) mg/dL Plasma Lactic Acid Randall 1.1 (0.7-2.0) mmol/L Calcium 10.3 H (8.4-10.2) mg/dL Total Bilirubin 0.7 (0.2-1.3) mg/dL AST 24 (17-59) U/L ALT 38 (21-72) U/L Alkaline Phosphatase 143 H (38-126) U/L Total Protein 8.3 H (6.3-8.2) g/dL Albumin 4.8 (3.5-5.0) g/dL Urine Color Urine Appearance (Clear) Urine pH (5.0-8.0) Ur Specific [place] (1.001-1.035) Urine Protein (Negative) Urine Glucose (UA) (Negative) Urine Ketones (Negative) Urine Blood (Negative) Urine Nitrite (Negative) Urine Bilirubin (Negative) Urine Urobilinogen (<2.0) mg/dL Ur Leukocyte Esterase (Negative) Urine RBC (0-5) /hpf Urine WBC (0-5) /hpf Hyaline Casts (0-2) /lpf Urine Mucus (None) /hpf 05/03/18 05/03/18 Range/Units 12:55 12:55 WBC (3.8-10.6) k/uL RBC (4.30-5.90) m/uL Hgb (13.0-17.5) gm/dL Hct (39.0-53.0) % MCV (80.0-100.0) fL MCH (25.0-35.0) pg MCHC (31.0-37.0) g/dL RDW (11.5-15.5) % Plt Count (150-450) k/uL Neutrophils % % Lymphocytes % % Monocytes % % Eosinophils % % Basophils % % Neutrophils # (1.3-7.7) k/uL Lymphocytes # (1.0-4.8) k/uL Monocytes # (0-1.0) k/uL Eosinophils # (0-0.7) k/uL Basophils # (0-0.2) k/uL PT 9.5 (9.0-12.0) sec INR 0.9 (<1.2) APTT 27.6 (22.0-30.0) sec Sodium (137-145) mmol/L Potassium (3.5-5.1) mmol/L Chloride (98-107) mmol/L Carbon Dioxide (22-30) mmol/L Anion Gap mmol/L BUN (9-20) mg/dL Creatinine (0.66-1.25) mg/dL Est GFR (CKD-EPI)AfAm (>60 ml/min/1.73 sqM) Est GFR (CKD-EPI)NonAf (>60 ml/min/1.73 sqM) Glucose (74-99) mg/dL Plasma Lactic Acid Randall (0.7-2.0) mmol/L Calcium (8.4-10.2) mg/dL Total Bilirubin (0.2-1.3) mg/dL AST (17-59) U/L ALT (21-72) U/L Alkaline Phosphatase (38-126) U/L Total Protein (6.3-8.2) g/dL Albumin (3.5-5.0) g/dL Urine Color Yellow Urine Appearance Clear (Clear) Urine pH 5.5 (5.0-8.0) Ur Specific [place] 1.017 (1.001-1.035) Urine Protein Trace H (Negative) Urine Glucose (UA) Negative (Negative) Urine Ketones 2+ H (Negative) Urine Blood Small H (Negative) Urine Nitrite Negative (Negative) Urine Bilirubin Negative (Negative) Urine Urobilinogen <2.0 (<2.0) mg/dL Ur Leukocyte Esterase Small H (Negative) Urine RBC 1 (0-5) /hpf Urine WBC 2 (0-5) /hpf Hyaline Casts 4 H (0-2) /lpf Urine Mucus Moderate H (None) /hpf Disposition Clinical Impression: Incisional abscess Disposition: HOME SELF-CARE Condition: Fair Instructions (If sedation given, give patient instructions): Abscess (ED) Prescriptions: Amoxicillin/Potassium Clav [Augmentin 875-125 Tablet] 1 each PO Q12HR #20 tab Is patient prescribed a controlled substance at d/c from ED?: No Referrals: Jordon Milligan MD [Primary Care Provider] - 1-2 days Misael Olson DO [Doctor of Osteopathic Medicine] - 1-2 days Time of Disposition: 17:35
[2018-05-03 17:48] VITALS: BP 124/83; PULSE 93; RESP 18
[2018-05-03] MEDS ORDERED: PIPERACILLIN-TAZOBACTAM 3.375 GM in SODIUM CHLORIDE 0.9% 100 ML IVPB SCH (20:00)
== END 2018-05-03 17:48 | disposition home or self-care (01) ==
LOC: EC 11:53
DX: T81.41XA Infection following a procedure, superficial incisional surgical site, initial encounter (principal); F17.200 Nicotine dependence, unspecified, uncomplicated; Z87.19 Personal history of other diseases of the digestive system; Z90.49 Acquired absence of other specified parts of digestive tract; Z98.890 Other specified postprocedural states
CPT/HCPCS: 36415; 93005; 80053; 83605; 85025; 85610; 85730; 81001; 87040; 87070; 87086; 87205; 74176; 99284; 10060; 96365; 96366 ×3; J2543

== ENCOUNTER → 2019-12-21 | Outpatient (CLI) | payer BC | END | disposition home or self-care (01) | LOC: LABWHC1 12:13 | PROVIDERS: ATTEND Family Medicine | DX: Z20.828 Contact with and (suspected) exposure to other viral communicable diseases (principal) | CPT/HCPCS: U0003; C9803 ==